=== PATIENT | female | born 1950 | race Two or more races ===

== ENCOUNTER → 2019-10-25 | Outpatient (CLI) | payer OTHER | END | disposition home or self-care (01) | LOC: MAMO-SONO 14:15 → SONOGRAMA 14:15 | DX: E04.2 Nontoxic multinodular goiter (principal) ==

== ENCOUNTER 2019-12-07 13:55 | Outpatient (CLI) | payer OTHER | END 2019-12-07 14:21 | disposition home or self-care (01) | LOC: NUCLEAR 13:55 | DX: M81.0 Age-related osteoporosis without current pathological fracture (principal) ==